=== PATIENT | male | born 2000 | race Caucasian/White ===

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

== ENCOUNTER 2018-07-23 17:37 | Emergency (ER) | payer OTHER ==
--- NOTE | 2018-07-23 17:56 | EDPHY ---
H & P Stated Complaint: L shoulder injury on slip n slide today Time Seen by Provider: 07/23/18 17:56 - Personal History Current Tetanus Diphtheria and Acellular Pertussis (TDAP): No - Medical/Surgical History Hx Asthma: No Hx Chronic Respiratory Disease: No Hx Diabetes: No Hx Cardiac Disease: No Hx Renal Disease: No Hx Cirrhosis: No Hx Alcoholism: No Hx HIV/AIDS: No Hx Splenectomy or Spleen Trauma: No Other PMH: PMH: denies. L shoulder dislocations - Social History Smoking Status: Never smoked Constitutional: Initial Vital Signs Temperature (C) 3 C L 07/23/18 17:48 Heart Rate 90 07/23/18 17:48 Respiratory Rate 16 07/23/18 17:48 Blood Pressure 129/90 H 07/23/18 17:48 O2 Sat (%) 98 07/23/18 17:48 O2 Delivery Mode Room Air Allergies/Adverse Reactions: No Known Allergies Allergy (Unverified 01/14/17 17:50) Home Medications: Medication Instructions Recorded NK [No Known Home Meds] 01/14/17 Medical Decision Making ED Course/Re-evaluation: CHIEF COMPLAINT: HISTORY OF PRESENT ILLNESS: must have 4 elements: Location, Quality, Severity , Duration, Timing, Context, Modifying Factors, Associated Signs and Symptoms REVIEW OF SYSTEMS: A comprehensive 10 system review of systems is otherwise negative aside from elements mentioned in the history of present illness and medical decision making. PHYSICAL EXAM: HR, BP, O2 Sat, RR. Temp noted General Appearance: Alert, well hydrated, appropriate, and non-toxic appearing. Head: Atraumatic without scalp tenderness or obvious injury Eyes: Pupils equal, round, reactive to light and accommodation, EOMI, no trauma , no injection. Ears: Clear bilaterally, no perforation, normal landmarks Nose: Atraumatic, no rhinorrhea, clear. Throat: There is no erythema or exudates, no lesions, normal tonsils, mucus membranes moist. Neck: Supple, 2+ carotid upstroke, nontender, no lymphadenopathy. Respiratory: No retractions, no distress, no wheezes, and no accessory muscle use. Lungs are clear to auscultation bilaterally. Cardiovascular: Regular rate and rhythm, no murmurs, rubs, or gallops. Bilateral carotid, radial, dorsalis pedis, and posterior tibial pulses intact. Good capillary refill all extremities. Gastrointestinal: Abdomen is soft, nontender, non-distended, no masses, no rebound, no guarding, no peritoneal signs. Musculoskeletal: Normal active ROM of all extremities, atraumatic. Neurological: Alert, appropriate, and interactive. The patient has normal DTRs and non-focal cranial nerves, motor, sensory, and cerebellar exam. Skin: No rashes, good turgor, no nodules on palpation. Past medical history: Past surgical history: Family history: Social history: DIAGNOSTICS/PROCEDURES/CRITICAL CARE TIME: DIFFERENTIAL DIAGNOSIS: MEDICAL DECISION MAKING: Departure - Departure Referrals: NONE *PRIMARY CARE P,. [Primary Care Provider] - As per Instructions
--- NOTE | 2018-07-23 17:57 | EDPHY ---
H & P Stated Complaint: L shoulder injury on slip n slide today Time Seen by Provider: 07/23/18 17:56 HPI/ROS: CHIEF COMPLAINT: Possible left shoulder dislocation HISTORY OF PRESENT ILLNESS: The patient is a healthy 18 y/o male with a prior history of a left shoulder dislocation who arrives complaining of left shoulder pain and probable dislocation after attempting to use a [id number] this afternoon about 1 hour ago. He jumped onto his abdomen and as soon as he hit the ground he had immediate pain and popping sensation in his left shoulder and says, "one of my friends tried to do a [id number] jennifer thing" which temporarily seemed to work, then when he moved his arm he dislocated it again and opted to come to the ED. His last dislocation was in 2017. He denies weakness or paresthesias. No other trauma. REVIEW OF SYSTEMS: A ten system review of systems was performed and is negative with the exception of the items mentioned in the HPI. Past medical history: Prior left shoulder dislocation Past surgical history: Tonsillectomy Family history: Noncontributory Social history: [employer] sophomore majoring in psychology. Parents live in [facility]. General Appearance: Alert. Vital signs reviewed. Eyes: Pupils equal and round, no conjunctival injection, no discharge. Anicteric. ENT, Mouth: Mucous membranes are moist, no oropharyngeal erythema or edema. Neck: No lymphadenopathy, supple. Respiratory: Lungs are clear to auscultation; no wheezes, rales, or rhonchi. Cardiovascular: Regular rate and rhythm; no murmur, rub, or gallop. Gastrointestinal: Abdomen is soft and nontender, no masses or organomegaly. Skin: Warm and dry, no rashes on exposed skin, normal color. Back: Nontender to palpation over the thoracolumbar spine. No CVAT. Extremities: Obvious left shoulder deformity without bruising or swelling. Left arm in sling. Pulses: Strong radial pulses Neurological: Alert and oriented. Left arm splinted in sling. Normal sensation deltoid in left arm. Moving all other extremities easily and equally. Pulses: 2+ radial pulses bilaterally. Psychiatric: Normal affect. - Personal History Current Tetanus Diphtheria and Acellular Pertussis (TDAP): No - Medical/Surgical History Hx Asthma: No Hx Chronic Respiratory Disease: No Hx Diabetes: No Hx Cardiac Disease: No Hx Renal Disease: No Hx Cirrhosis: No Hx Alcoholism: No Hx HIV/AIDS: No Hx Splenectomy or Spleen Trauma: No Other PMH: PMH: denies. L shoulder dislocations - Social History Smoking Status: Never smoked Constitutional: Initial Vital Signs Temperature (C) 37 C 07/23/18 17:48 Heart Rate 90 07/23/18 17:48 Respiratory Rate 16 07/23/18 17:48 Blood Pressure 129/90 H 07/23/18 17:48 O2 Sat (%) 98 07/23/18 17:48 O2 Delivery Mode Room Air Allergies/Adverse Reactions: No Known Allergies Allergy (Unverified 01/14/17 17:50) Home Medications: Medication Instructions Recorded NK [No Known Home Meds] 01/14/17 Medical Decision Making - Diagnostics Imaging: I viewed and interpreted images myself ED Course/Re-evaluation: This is a 18 y/o male with a history of a prior left shoulder dislocation who presents with clinically-dislocated left shoulder secondary to using a slip-n- slide 1 hour ago. Distal pulses, strength, and sensation intact. No other trauma noted. Left shoulder x-ray confirms anterior dislocation. Patient is declining IV or pain medications. Plan for reduction. Left shoulder x-ray: Shoulder dislocation. Procedure: Reduction of dislocated shoulder Time-out completed immediately before the procedure. Neurovascular exam intact pre-procedure. Patient declined pain medication. The left shoulder was reduced using massage and gentle traction technique--gradually lifting the arm up over his head--without complications. Reassessed post-procedure. Neurovascular status intact - normal median, radial, ulnar, and axillary nerve, motor, and sensory exam. Exam indicated reduction. Confirmed on x-ray. Arm sling applied. The procedure was performed by myself, Dr. Penny. Reviewed postreduction x-ray. Shoulder reduced. Reassessed patient and discussed standard care and follow up instructions. He understands he needs to follow up with an orthopedist in the next week. Return precautions given. Differential Diagnosis: I considered a differential diagnosis that includes but is not limited to fracture, dislocation, sprain, strain, contusion, and abrasion. Departure - Departure Disposition: Home, Routine, Self-Care Clinical Impression: Shoulder dislocation Qualifiers: Encounter type: initial encounter Laterality: left Qualified Code(s): S43.005A - Unspecified dislocation of left shoulder joint, initial encounter Condition: Good Instructions: Shoulder Dislocation (ED) Additional Instructions: 1. Wear sling for support until follow up appointment. 2. Follow up with an orthopedist in the next week. You've been referred to Dr. Harrison locally. 3. Use ibuprofen and Tylenol as directed for pain and inflammation over the next few days. 4. Return for hand weakness or numbness or other worsening of condition. Adult Pain & Fever Control: We recommend Acetaminophen (Tylenol) and Ibuprofen (Motrin,Advil) for pain and fever control. When fever is high or pain severe, both drugs can be used at the same time, but at different intervals. Please note the time differences. Your dose is: Acetaminophen 650mg every 4 to 6 hours Ibuprofen 600mg every 8 hours with food Note: do not take Acetaminophen with Hydrocodone (Vicodin, Lortab) or Oxycodone (Percocet). These medications also contain Acetaminophen. No more than 3000mg of Acetaminophen should be taken in 24 hours (for an adult). Referrals: Jignesh Harrison MD [Medical Doctor] - As per Instructions Ana Luisa Dave MD [[facility] [place] - As per Instructions Report Scribed for: Letty Penny Report Scribed by: Christelle Martinez Date of Report: 07/23/18 Time of Report: 18:02 Physician Review and Approval Statement: 07/23/18 17:57 Portions of this note were transcribed by the medical billing coordinator. I, Dr. Letty Penny, personally performed the history, physical exam, and medical decision- making; and confirmed the accuracy of the information in the transcribed note.
[2018-07-23] MEDS ORDERED: ONDANSETRON 4MG PREPACK#2 BTL TAKEHOME ONE (18:16)
[2018-07-23 19:14] VITALS: BP 121/84
== END 2018-07-23 19:13 | disposition home or self-care (01) ==
PROC: 0RSKXZZ Reposition Left Shoulder Joint, External Approach (ICD-10-PCS; principal; 2018-07-23)
DX: S43.012A Anterior subluxation of left humerus, initial encounter (principal); W18.39XA Other fall on same level, initial encounter; Y92.007 Garden or yard of unspecified non-institutional (private) residence as the place of occurrence of the external cause